=== PATIENT | male | born 1990 | race Caucasian/White ===

== ENCOUNTER 2016-12-18 02:07 | Emergency (ER) | payer BC ==
[~2016-12-18] VITALS: Ht 180.3 cm; Wt 74.4 kg
[2016-12-18] MEDS ORDERED: KETOROLAC 60 MG/2 ML VIAL (J1885) IM ONE (04:45)
[2016-12-18 05:26] VITALS: BP 123/70
--- NOTE | 2016-12-18 07:26 | REP ---
Clinical: Trauma. Technique: Frontal view of the chest with multiple views of the left hemithorax. Findings: Frontal view of the chest demonstrates no acute cardiopulmonary process. Multiple views of the left left hemithorax demonstrates no obvious acute rib fracture or pathology. Impression: Normal left rib series Signed by Nico Hernandez MD 12/18/2016 07:18 A
--- NOTE | 2016-12-18 07:34 | REP ---
Clinical: Trauma. Technique: AP and lateral views of the left forearm. Findings: No acute fracture dislocation. Skeletal structures, joint spaces, and surrounding soft tissues are normal. No subcutaneous emphysema or radiodense foreign body. Impression: Normal left forearm. No acute fracture or dislocation. Signed by Nico Hernandez MD 12/18/2016 07:25 A
== END 2016-12-18 05:27 | disposition home or self-care (01) ==
LOC: EDBD 02:07 → M ED 04:49
DX: S20.219A Contusion of unspecified front wall of thorax, initial encounter (principal); S50.12XA Contusion of left forearm, initial encounter; W23.1XXA Caught, crushed, jammed, or pinched between stationary objects, initial encounter; Y92.139 Unspecified place military base as the place of occurrence of the external cause; Y93.89 Activity, other specified; Y99.1 Military activity
CPT/HCPCS: 71101; 73090; 96372; 99283; J1885